=== PATIENT | female | born 1935 | race Caucasian/White ===

== ENCOUNTER 2021-06-23 17:16 | Emergency (ER) | payer OTHER, MEDICARE ==
[~2021-06-23] VITALS: Ht 175.3 cm; Wt 68.0 kg
--- NOTE | ~2021-06-23 | EMS ---
[facility] [address] [place] [address] EMS Patient Care Report Name: ELISABETH FLORES Room #: REG MENDEZ Kiran#: [id number] Admission: 06/23/21 Attend Phys: Discharge: Date of : [birth year] Report #: [id number] THIS REPORT FOR: //name// Report Transmitted: 06/23/2021 17:14 EMS Care Summary [place], [place]/[facility] Incident [id number] @ 06/23/2021 16:40 Incident Location [address] [place] [address] Patient ELISABETH LARSEN Female, 86 Years 1935 Patient Address [address] [place] [id number] Patient History Hypothyroidism, Patient Allergies No known allergies, Patient Medications Levothyroxine, Simvastatin, Metoprolol, Trazodone, Chief Complaint fall Disposition Transported No Lights/[place] Dispatch Reason Falls Transported To [facility] Narrative 86 y/o female trip and fall Upon arrival the pt was sitting in the chair outside her residence. The pt is A&O x 4 with a GCS of 15. She has a patent airway, breathing is normal, and has a strong reg radial pulse. The pt states she feels ok. She is on only c/o [facility] [address] [place] [address] EMS Patient Care Report Name: ELISABETH FLORES Room #: CARY Kiran#: [id number] Admission: 06/23/21 Attend Phys: Discharge: Date of : [birth year] Report #: [id number] 4/10 pain above her R eye. She has a minor lac above her L eye that bleeding is controlled on it's own. The pt denies LOC. Pt doesn't take blood thinners. She was assisted to the standing position, placed on the cot in a position of comfort secured to the cot and loaded into the ambulance. VS were established. The pt was transported to [place] per the pt and family request. The pt was taken with out incident or changes with the pt. She was lifted up and placed on an ED bed at [place]. Report was given and EMS returned to service. Initial Vitals @17:03P: 101,BP: 124/72,SpO2: 87, @17:01P: 103,R: 14,BP: 113/60,Pain: 4/10,GCS: 15,CO: 0,SpO2: 98,Revised Trauma: 12, Assessments @17:04MENTAL:Time Oriented,Place Oriented,Event Oriented,Person Oriented,SKIN:HEENT:Eyes: LAC,Head/Face: No Abnormalities,Neck/Airway: No Abnormalities,LUNG SOUNDS:General: No Abnormalities,ABDOMEN:General: No Abnormalities,PELVIS//GI:No Abnormalities,EXTREMITIES:Capillary Refill: Right Upper: < 2 Sec,Capillary Refill: Left Upper: < 2 Sec,Left Arm: No Abnormalities,Right Arm: No Abnormalities,Left Leg: No Abnormalities,Right Leg: No Abnormalities,PULSE:Radial: 2+ Normal,NEURO:No Abnormalities, Impression Laceration/Abrasion/Hematoma (minor surface trauma) Procedures @17:03 ALS Assessment Response: UnchangedSucceeded Timeline 16:39,Call Received 16:39,Dispatch Notified 16:40,Dispatched 16:44,En Route 16:53,On Scene 16:54,At Patient 17:01,BP: 113/60 M,PULSE: 103,RR: 14 R,SPO2: 98 Ox,ETCO2: ,BG: ,PAIN: 4,GCS: 15, 17:03,BP: 124/72 M,PULSE: 101,RR: R,SPO2: 87 Ox,ETCO2: ,BG: ,PAIN: ,GCS: , 17:03,ALS Assessment,Response: UnchangedSucceeded, 17:09,Depart Scene 17:11,At Destination 17:28,Call Closed Disclaimer v1.1 Copyright 2020 [employer] [address] [address] EMS Patient Care Report Name: RODRENUKAELISABETH Room #: REG ER Qiana#: [id number] Admission: 06/23/21 Attend Phys: Discharge: Date of : [birth year] Report #: [id number] This EMS Care Summary contains data elements from the applicable legal record (which may be displayed differently). It is designed to provide pertinent information for the following purposes: continuity of care, clinical quality, and state data reporting. The complete legal record is available to ED staff and administrators of the receiving hospital in [employer] Patient Tracker. All data is provided "as is."
[2021-06-23 21:19] VITALS: BP 132/68
== END 2021-06-23 21:17 | disposition home or self-care (01) ==
LOC: ER 17:16
DX: S01.81XA Laceration without foreign body of other part of head, initial encounter (principal); S09.90XA Unspecified injury of head, initial encounter; R22.0 Localized swelling, mass and lump, head; W01.0XXA Fall on same level from slipping, tripping and stumbling without subsequent striking against object, initial encounter; Y93.89 Activity, other specified; Y92.89 Other specified places as the place of occurrence of the external cause; Y99.8 Other external cause status

== ENCOUNTER 2021-07-20 14:42 | Emergency (ER) | payer OTHER, MEDICARE ==
[~2021-07-20] VITALS: Ht 182.9 cm; Wt 77.1 kg
[2021-07-20 18:18] VITALS: BP 132/70
== END 2021-07-20 18:24 | disposition home or self-care (01) ==
LOC: ER 14:42
DX: M25.552 Pain in left hip (principal); M25.551 Pain in right hip; M25.531 Pain in right wrist; W18.30XA Fall on same level, unspecified, initial encounter; Y93.89 Activity, other specified; Y92.89 Other specified places as the place of occurrence of the external cause; Y99.9 Unspecified external cause status

== ENCOUNTER 2021-07-23 11:08 | Inpatient (IN) | payer OTHER, MEDICARE ==
[~2021-07-23] VITALS: Ht 180.3 cm; Wt 78.0 kg
[2021-07-23 11:16] VITALS: BP 161/79
--- NOTE | 2021-07-23 12:07 | EKG ---
[place] [address] [address] [facility] [place] [address] ELECTROCARDIOGRAM REPORT Name: BERTHA LARSEN Room #: REG [facility]#: [id number] Admission: 07/23/21 Attend Phys: Discharge: Date of : [birth year] Report #: [id number] [facility] ED Test Date: 2021-07-23 Test Time: 11:45:46 Pat Name: BERTHA LARSEN Department: Room: Gender: F Surgery Tech: margie : 1935 Requested By: Osorio Garcia Order Number: [id number] MD: Steven Garcia Measurements Intervals [place] Rate: 67 P: 20 WI: 182 QRS: -7 QRSD: 96 T: 41 QT: 430 QTc: 454 Interpretive Statements Sinus rhythm Borderline low voltage, extremity leads Anteroseptal infarct, old No previous ECG available for comparison Electronically Signed On 07-23-2021 12:07:01 REGISTERED NURSE SUPERVISOR by Steven Garcia [email or web address] <ELECTRONICALLY SIGNED> By: Steven Garcia MD 07/23/21 1207 1145 [id number] Steven Garcia MD /W[place]TER
[2021-07-23 12:23] LABS: ABSOLUTE NEUTROPHILS 7.9 thou/uL (1.4-8.2); BASOPHILS 0.5 % (0.0-2.0); EOSINOPHILS 0.3 % (0.0-3.0); HEMATOCRIT 38.6 % (37.0-47.0); HEMOGLOBIN 12.6 gm/dL (12.0-15.0); LYMPHOCYTES 12.4 % (24.0-44.0); MCH 27.8 pg (26.0-34.0); MCHC 32.7 g/dL (28.0-37.0); MCV 84.9 fL (80.0-100.0); MONOCYTES 6.5 % (1.0-8.0); PLATELET COUNT 198 thou/uL (150-400); POLYS 80.3 % (36.0-66.0); RBC 4.54 mil/uL (4.20-5.00); WBC 9.8 thou/uL (4.0-11.0)
[2021-07-23 12:25] LABS: CALCIUM 8.6 mg/dL (8.5-10.1); CREATININE 0.8 mg/dL (0.6-1.0)
[2021-07-23 12:32] LABS: URINE BILIRUBIN NEGATIVE (Negative); URINE BLOOD 3+ (Negative); URINE COLOR YELLOW; URINE GLUCOSE-RANDOM* NEGATIVE (Negative); URINE KETONES NEGATIVE (Negative); URINE PROTEIN (DIPSTICK) NEGATIVE (Negative); URINE UROBILINOGEN 0.2 E.U./dl (0.2-1.0)
[2021-07-23 12:33] LABS: URINE LEUKOCYTES-REFLEX 1+ (Negative); URINE NITRITE-REFLEX POSITIVE (Negative)
[2021-07-23 12:34] LABS: URINE CLARITY HAZY
[2021-07-23 12:36] LABS: ALBUMIN 3.2 g/dL (3.4-5.0); TOTAL BILIRUBIN 0.8 mg/dL (0.2-1.0); TOTAL PROTEIN 6.7 g/dL (6.4-8.2)
[2021-07-23 12:37] LABS: APTT 28.2 Seconds (24.5-32.8); INR 0.94; PROTIME 10.3 Seconds (10.5-12.1)
[2021-07-23 12:45] LABS: AMP/METHAMP Negative (Negative); BARBITURATES Negative (Negative); BENZODIAZEPINES Negative (Negative); COCAINE Negative (Negative); METHADONE Negative (Negative); OPIATES Negative (Negative); PCP Negative (Negative)
[2021-07-23 12:54] LABS: BACTERIA-REFLEX >30 Many /HPF (None Seen); CASTS None Seen /LPF (None Seen); CRYSTALS None Seen /LPF (None Seen); SQUAMOUS 0-3 Few /LPF (0-3); URINE RBC 1-2 Rare /HPF (NONE SEEN); URINE WBC-REFLEX 0-5 Rare /HPF (0-5)
[2021-07-23 13:45] VITALS: BP 139/74
[2021-07-23] MEDS ORDERED: MEMANTINE HCL5 MG PO (13:49)
[2021-07-23] MEDS ORDERED: LEVOTHYROXINE125 MCG PO (13:49)
[2021-07-23] MEDS ORDERED: METOPROLOL TART25 MG PO (13:50)
[2021-07-23] MEDS ORDERED: DESYREL150 MG PO (13:50)
[2021-07-23] MEDS ORDERED: SIMVASTATIN80 MG PO (13:50)
[2021-07-23] MEDS ORDERED: ADVIL DUAL ACT1 EACH PO (13:51)
[2021-07-23] MEDS ORDERED: B12 ACTIVE1000 MCG PO (13:52)
[2021-07-23] MEDS ORDERED: MELATONIN5 MG SUBLING (13:53)
[2021-07-23] MEDS ORDERED: VITAMIN D3125 MC1 PO (13:53)
[2021-07-23] MEDS ORDERED: TYLENOL PM EX-1 EACH PO (13:54)
[2021-07-23] MEDS ORDERED: SUPER THERAVIT1 EACH PO (13:54)
[2021-07-23 20:05] VITALS: BP 124/59
[2021-07-24] VITALS (7 sets, daily range): BP systolic 128–152; BP diastolic 72–84
[2021-07-24 05:24] LABS: HEMATOCRIT 32.9 % (37.0-47.0); HEMOGLOBIN 10.9 gm/dL (12.0-15.0); MCH 28.2 pg (26.0-34.0); MCHC 33.2 g/dL (28.0-37.0); MCV 85.1 fL (80.0-100.0); RBC 3.87 mil/uL (4.20-5.00); RDW 14.9 % (10.5-14.5); WBC 5.5 thou/uL (4.0-11.0)
[2021-07-24 05:34] LABS: CREATININE 0.7 mg/dL (0.6-1.0); POTASSIUM 3.6 mmol/L (3.5-5.1)
--- NOTE | 2021-07-24 13:45 | NUR ---
ASSUMED PT CARE THIS AM. PT A&OX1, INSTRUCTED ON HOW TO USE CALL LIGHT BUT FREQUENT CHECKS ON PATIENT WELL DUE TO PATIENT DISORIENTATION AND CONFUSION. PATIENT IV REMAINS PATENT, FLUIDS INFUSING WITHOUT ISSUE. MEDICATIONS TAKEN WELL. DRISCOLL CATHETER IN PLACE, DRAINING YELLOW URINE. PATIENT IS ON ROOM AIR. FALL PRECAUTIONS ARE IN PLACE, CALL LIGHT WITHIN REACH.
--- NOTE | 2021-07-25 04:51 | NUR ---
ASSUMED PT CARE THIS PM. PT IS ALERT AND ORIENTED TO SELF.PT TOOK PIV ACCESS AND HAD AUGUSTINE REPLACED. PT HAS FOELY IN [place] WHICH IS PATENT. PT KEEPS TAKING TELE LEADS OFF. MEDS WERE GVIEN PER EMAR ORDER. PT IS ON RA. NO VISIBLE SIGN OF DISTRESS WAS NOTED. FALL PRECAUTIONS IN PLACE. WILL CONTINUE TO MONITOR.
[2021-07-25 05:51] LABS: HEMATOCRIT 31.8 % (37.0-47.0); HEMOGLOBIN 10.2 gm/dL (12.0-15.0); MCH 27.5 pg (26.0-34.0); MCHC 32.2 g/dL (28.0-37.0); MCV 85.4 fL (80.0-100.0); RBC 3.72 mil/uL (4.20-5.00); RDW 15.2 % (10.5-14.5); WBC 5.2 thou/uL (4.0-11.0)
[2021-07-25 06:33] LABS: CREATININE 0.6 mg/dL (0.6-1.0); POTASSIUM 3.7 mmol/L (3.5-5.1)
[2021-07-25 07:42] VITALS: BP 167/89
[2021-07-25 09:45] VITALS: BP 160/81
--- NOTE | 2021-07-25 12:17 | NUR ---
PT ADMITTED RELATED TO LT INFERIOR AND SUPERIOR RAMI FX'S, LEFT ACETABULAR FX. CM REVIEWED CHART AND SPOKE WITH CARE TEAM. CM MET WITH PT AT BEDSIDE THIS DAY. PT IS NOT A GOOD HISTORIAN AND DID NOT ANSWER QUESTIONS APPROPRIATE TO COVERSATION. DAUGHTER AT BEDSIDE, DPOA. DAUGHTER REPORTED PT LIVES AT [facility]. SHE USES A CANE TO ASSIST WITH MOBILITY AND HAS A FWW IF NEEDED. DAUGHTER REPORTS SHE ASSIST PT WITH ADLS SUCH BATHING AND DRESSING. PT ABLE TO TOILET SELF CLEANING PORTER. DAUGHTER REPORTS SHE WANTS PT TO GO TO [facility] FOR SKILLED SERVICES ONCE MEDICALLY STABLE HER FATHER HAD BEEN THERE BEFORE. REFERRAL SENT. CM FOLLOWING REGARDING DC PLANNING.
[2021-07-25 16:26] VITALS: BP 160/81
--- NOTE | 2021-07-25 19:10 | NUR ---
PT ALERT TO SELF. KNOWS DAUGTHER AT BEDSIDE. VS CHARTED. PT WILLINGLY WORKED WITH THERAPIES TODAY. WILL CONTINUE TO MONITOR.
[2021-07-25 19:35] VITALS: BP 171/85
[2021-07-25 21:49] VITALS: BP 155/87
[2021-07-26 00:32] VITALS: BP 144/69
--- NOTE | 2021-07-26 04:23 | NUR ---
ASSUMED PT CARE THIS PM.PT IS ALERT AND ORIENTED TO SELF.PT HAS DRISCOLL IN PLACE. PT IS ON RA. MEDS WERE GIVEN PER EMAR ORDERS. PT C/O PAIN WHICH WAS MANAGED BY PRN PAIN MEDS. FALL PRECAUTIONS IN PLACE. WILL CONTINUE TO MONITOR.
[2021-07-26 07:38] VITALS: BP 170/92
[2021-07-26 11:31] VITALS: BP 153/90
--- NOTE | 2021-07-26 14:33 | NUR ---
CM REACHED OUT TO [facility] THIS AM. CM FAXED UPDATED CLINICAL TO THEM FOR REVIEW. CM AWAITING DETERMINATION OF IF THEY CAN ACCEPT PT.
[2021-07-26 15:55] VITALS: BP 174/92
[2021-07-26] MEDS ORDERED: LEVOFLOXACIN750 MG PO (18:52)
--- NOTE | 2021-07-26 19:41 | NUR ---
Assumed pt care at 7am.Pt in bed alert and oriented to self alone. Assessment completed.vss.Assisted pt with tray setup at all meals. Fair appetite noted. Therapist transfered pt to chair after breakfast and was there for over 3hours.Family here to visit,updates given.Pt pulled piv out later this evening and was replaced.Pt yells out occassionaly for no reason. Report off to vicente rn.
[2021-07-26 20:00] VITALS: BP 160/78
[2021-07-26 23:44] VITALS: BP 175/99
--- NOTE | 2021-07-27 04:35 | NUR ---
ASSUMED PT CARE THIS PM. PT IS ALERT AND ORIENTED TO SELF. PT CAN BE AGGRESSIVE AND UNCOOPERATIVE. PT SOMETIMES YELL OUT. MEDS WERE GIVEN PER EMAR ORDERS. PT IS ON RA. NO VISIBLE SIGN OF DISTRESS WAS NOTED. FALL PRECAUTIONS IN PLACE WILL CONTINUE TO MONITOR.
[2021-07-27 04:59] VITALS: BP 155/93
[2021-07-27 07:49] VITALS: BP 151/79
[2021-07-27 11:30] VITALS: BP 139/78
--- NOTE | 2021-07-27 14:22 | NUR ---
[facility] HAS BED TO ACCEPT PT THIS DAY. CARE TEAM INDICATED THAT PT IS MEDICALLY STABLE TO DC TO [facility] THIS DAY. CM FAXED ORDERS TO FACILITY. [facility] ARRANGED FOR 1430. CM NOTIFIED PT AND DTR. THEY ARE AWARE AND AGREEABLE. CHART COPY MADE. NO OTHER CM INTERVENTION INDICATED. CASE CLOSED.
[2021-07-27 14:25] LABS: URINE BILIRUBIN NEGATIVE (Negative); URINE BLOOD NEGATIVE (Negative); URINE CLARITY CLEAR; URINE COLOR YELLOW; URINE GLUCOSE-RANDOM* NEGATIVE (Negative); URINE KETONES NEGATIVE (Negative); URINE LEUKOCYTES-REFLEX NEGATIVE (Negative); URINE NITRITE-REFLEX NEGATIVE (Negative); URINE PROTEIN (DIPSTICK) NEGATIVE (Negative); URINE UROBILINOGEN 0.2 E.U./dl (0.2-1.0)
--- NOTE | 2021-07-31 14:56 | HC ---
[facility] [address] [place] [address] CONSULTATION Name: BERTHA LARSEN Room #: 453-P [facility] [place] ..#: [id number] Admission: 07/23/21 Attend Phys: Joseph Cervantes MD Discharge: 07/27/21 Date of : [birth year] Report #: [id number] THIS REPORT FOR: cc: Lula Flores MD, Rebecca MD Deardorff, Valerie A. MD ~ DATE OF SERVICE: 07/24/2021 REASON FOR CONSULTATION: Left pelvis fracture. HISTORY OF PRESENT ILLNESS: The patient is an 86-year-old female who reportedly fell 2 inches on . She was seen in the Emergency Department and x-rays were negative. She has had trouble ambulating since that time and was brought into the ER because of increasing pain, weakness and confusion. She was diagnosed with a left superior and inferior pubic rami fractures, urinary tract infection. REVIEW OF SYSTEMS: MUSCULOSKELETAL: See HPI. Denies other complaints. NEUROLOGIC: Denies numbness or tingling. PAST MEDICAL HISTORY: Significant for altered mental status, hypothyroidism, hypertension, dementia, history of brain mass. MEDICATIONS: Reported medications, levothyroxine, memantine, metoprolol, simvastatin, trazodone, ibuprofen/acetaminophen vitamin B12, cholecalciferol, Tylenol PM. SOCIAL HISTORY: Her daughter was present at her bedside. She lives in assisted living, uses a cane. Denies smoking or drinking alcohol. PAST SURGICAL HISTORY: Unknown. LABORATORY DATA: Laboratory studies done on 07/24/2021 show white blood cell count 5.5, hemoglobin 10.9, hematocrit 32.9, platelet count 141. Chemistry is grossly normal. PHYSICAL EXAMINATION: GENERAL: The patient is awake, alert and oriented x 2 plus. She believes that her daughter, Winifred, who is sitting next to her is actually her mother. She is a well-developed, well-nourished, thin female in no acute distress. She does converse well. She is sitting in hospital bed. VITAL SIGNS: Most recent vital signs show temperature of 36.6, heart rate 77, respirations 17, blood pressure 151/80 and pulse oximetry 98% on room air. EXTREMITIES: Examination of her bilateral upper extremities, she has some mild diffuse bruising. Skin is otherwise clean, dry and intact. She has diffuse [facility] [address] [place] [address] CONSULTATION Name: BERTHA LARSEN Room #: 453-P [facility]#: [id number] Admission: 07/23/21 Attend Phys: Joseph Cervantes MD Discharge: 07/27/21 Date of : [birth year] Report #: [id number] arthritic changes. She has grossly normal motor and sensory intact. There is no pain with range of motion. No tenderness to palpation throughout the entire bilateral upper extremities. Bilateral lower extremity exam, she has grossly normal motor and sensory exam. Skin is clean, dry and intact. There is no pain with gentle range of motion of the bilateral hips, knees, ankles or feet. DIAGNOSTIC DATA: CT scan of the pelvis shows left inferior and superior pubic rami fractures that are essentially nondisplaced. IMPRESSION AND PLAN: Left superior and inferior pubic ramus fractures and are essentially nondisplaced. I discussed the diagnosis as well as treatment options with the patient and her daughter and recommended nonoperative treatment. Recommend physical therapy, ambulation and will consult case management for discharge planning. Thank you very much for allowing us to participate in the care of this patient. Please do not hesitate to contact me if you have any further questions or concerns. I will sign off. <ELECTRONICALLY SIGNED> By: Lea Lazar MD 07/31/21 1456 [id number] [id number] Lea Lazar MD /nt
== END 2021-07-27 14:40 | DRG 871 ==
LOC: ER 11:08 → EROBS 13:58 → 4W 13:58 → EROBS 16:29 → 4W 07-24 04:12
PROVIDERS: Emergency Medicine; Internal Medicine; ADMIT Hospitalist; ATTEND Hospitalist
DX: A41.9 Sepsis, unspecified organism (principal); J18.9 Pneumonia, unspecified organism; S32.512A Fracture of superior rim of left pubis, initial encounter for closed fracture; S32.592A Other specified fracture of left pubis, initial encounter for closed fracture; N39.0 Urinary tract infection, site not specified; F03.90 Unspecified dementia, unspecified severity, without behavioral disturbance, psychotic disturbance, mood disturbance, and anxiety; R53.81 Other malaise; E55.9 Vitamin D deficiency, unspecified; E53.8 Deficiency of other specified B group vitamins; E78.5 Hyperlipidemia, unspecified; I10 Essential (primary) hypertension; G93.89 Other specified disorders of brain; W18.30XA Fall on same level, unspecified, initial encounter; E03.9 Hypothyroidism, unspecified; Z20.822 Contact with and (suspected) exposure to COVID-19; Z23 Encounter for immunization; Z79.899 Other long term (current) drug therapy; Y93.89 Activity, other specified; Y92.89 Other specified places as the place of occurrence of the external cause; Y99.8 Other external cause status
CPT/HCPCS: 10045